=== PATIENT | male | born 1975 | race Caucasian/White ===

== ENCOUNTER 2020-09-26 11:59 | Emergency (ER) | payer OTHER ==
--- NOTE | 2020-09-26 12:39 | ED ---
Recheck HPI - General Chief Complaint: Recheck/Abnormal Lab/Rx Stated Complaint: High BP Time Seen by Provider: 09/26/20 12:00 Source: patient, RN notes reviewed Mode of arrival: ambulatory Limitations: no limitations - History of Present Illness Initial Comments: This is a 45-year-old male with no personal history of a family history of hypertension who was sent here from [facility]/Dr. Myers for evaluation of elevated blood pressure. Apparently it was noticed yesterday when he was at a dentist appointment. He has had intermittent left-sided headaches that he relates to stress as he is out of work and looking for job right now. He has 3 children he states. No fevers chills nausea vomiting sweats currently no headache states he does get the headache is rather sharp in nature. No chest pain or shortness of breath no other modifying factors. MD Complaint: other - Related Data Home Medications Medication Instructions Recorded Confirmed Clindamycin HCl 300 mg PO Q8H 09/26/20 09/26/20 Ibuprofen [Advil] 400 mg PO Q8HR PRN 09/26/20 09/26/20 Lisinopril [Prinivil] 10 mg PO DAILY 09/26/20 09/26/20 Allergies Allergy/AdvReac Type Severity Reaction Status Date / Time Penicillins Allergy Rash/Hives Verified 09/26/20 13:37 Review of Systems ROS Statement: Those systems with pertinent positive or pertinent negative responses have been documented in the HPI. ROS Other: All systems not noted in ROS Statement are negative. Past Medical History Past Medical History: Hypertension History of Any Multi-Drug Resistant Organisms: None Reported Additional Past Surgical History / Comment(s): carpal tunnel Past Psychological History: No Psychological Hx Reported Smoking Status: Never smoker Past Alcohol Use History: Occasional Past Drug Use History: Marijuana General Exam - General Exam Comments Initial Comments: This is a well-developed well-nourished male who is awake alert oriented 3 Limitations: no limitations General appearance: alert, in no apparent distress Head exam: Present: atraumatic, normocephalic, normal inspection Eye exam: Present: normal appearance, PERRL, EOMI. Absent: scleral icterus, conjunctival injection, periorbital swelling ENT exam: Present: normal exam, mucous membranes moist Neck exam: Present: normal inspection, full ROM, other (No stridor JVD or bruits). Absent: tenderness, meningismus, lymphadenopathy Respiratory exam: Present: normal lung sounds bilaterally. Absent: respiratory distress, wheezes, rales, rhonchi, stridor Cardiovascular Exam: Present: normal rhythm, tachycardia, normal heart sounds. Absent: systolic murmur, diastolic murmur, rubs, gallop, clicks GI/Abdominal exam: Present: soft, normal bowel sounds. Absent: distended, tenderness, guarding, rebound, rigid Extremities exam: Present: normal inspection, full ROM, normal capillary refill. Absent: tenderness, pedal edema, joint swelling, calf tenderness Back exam: Present: normal inspection Neurological exam: Present: alert, oriented X3, CN II-XII intact Psychiatric exam: Present: normal affect, normal mood Skin exam: Present: warm, dry, intact, normal color. Absent: rash Course Vital Signs 09/26/20 09/26/20 12:01 13:22 Temperature 98.7 F Pulse Rate 121 H 100 Respiratory 20 18 Rate Blood Pressure 171/127 152/85 O2 Sat by Pulse 99 100 Oximetry - Reevaluation(s) Reevaluation #1: 09/26/20 12:39 The patient's original blood pressure upon arrival was 171/127 3 my exam was 155/90 Medical Decision Making - Medical Decision Making Patient is asymptomatic this time I did a long discussion with him regarding the findings. Patient will be discharged and follow-up as planned he is to start taking the lisinopril prescription was called in to him by Dr. Myers's office. His blood pressure has improved markedly without intervention at this time. - Lab Data Result diagrams: 09/26/20 12:38 09/26/20 12:38 Lab Results 09/26/20 09/26/20 09/26/20 Range/Units 12:38 12:38 12:38 WBC 8.7 (3.8-10.6) k/uL RBC 5.74 (4.30-5.90) m/uL Hgb 17.0 (13.0-17.5) gm/dL Hct 48.8 (39.0-53.0) % MCV 84.9 (80.0-100.0) fL MCH 29.6 (25.0-35.0) pg MCHC 34.9 (31.0-37.0) g/dL RDW 12.9 (11.5-15.5) % Plt Count 220 (150-450) k/uL MPV 7.1 Neutrophils % 60 % Lymphocytes % 26 % Monocytes % 7 % Eosinophils % 3 % Basophils % 2 % Neutrophils # 5.2 (1.3-7.7) k/uL Lymphocytes # 2.3 (1.0-4.8) k/uL Monocytes # 0.6 (0-1.0) k/uL Eosinophils # 0.2 (0-0.7) k/uL Basophils # 0.1 (0-0.2) k/uL D-Dimer 0.39 (<0.60) mg/L FEU Sodium 139 (137-145) mmol/L Potassium 4.5 (3.5-5.1) mmol/L Chloride 104 (98-107) mmol/L Carbon Dioxide 27 (22-30) mmol/L Anion Gap 8 mmol/L BUN 17 (9-20) mg/dL Creatinine 0.81 (0.66-1.25) mg/dL Est GFR (CKD-EPI)AfAm >90 (>60 ml/min/1.73 sqM) Est GFR (CKD-EPI)NonAf >90 (>60 ml/min/1.73 sqM) Glucose 87 (74-99) mg/dL Calcium 10.1 (8.4-10.2) mg/dL Magnesium 1.8 (1.6-2.3) mg/dL Total Bilirubin 0.5 (0.2-1.3) mg/dL AST 39 (17-59) U/L ALT 63 H (4-49) U/L Alkaline Phosphatase 57 (38-126) U/L Creatine Kinase 100 (55-170) U/L Troponin I (0.000-0.034) ng/mL Total Protein 7.7 (6.3-8.2) g/dL Albumin 4.4 (3.5-5.0) g/dL TSH 3.290 (0.465-4.680) mIU/L 09/26/20 Range/Units 12:38 WBC (3.8-10.6) k/uL RBC (4.30-5.90) m/uL Hgb (13.0-17.5) gm/dL Hct (39.0-53.0) % MCV (80.0-100.0) fL MCH (25.0-35.0) pg MCHC (31.0-37.0) g/dL RDW (11.5-15.5) % Plt Count (150-450) k/uL MPV Neutrophils % % Lymphocytes % % Monocytes % % Eosinophils % % Basophils % % Neutrophils # (1.3-7.7) k/uL Lymphocytes # (1.0-4.8) k/uL Monocytes # (0-1.0) k/uL Eosinophils # (0-0.7) k/uL Basophils # (0-0.2) k/uL D-Dimer (<0.60) mg/L FEU Sodium (137-145) mmol/L Potassium (3.5-5.1) mmol/L Chloride (98-107) mmol/L Carbon Dioxide (22-30) mmol/L Anion Gap mmol/L BUN (9-20) mg/dL Creatinine (0.66-1.25) mg/dL Est GFR (CKD-EPI)AfAm (>60 ml/min/1.73 sqM) Est GFR (CKD-EPI)NonAf (>60 ml/min/1.73 sqM) Glucose (74-99) mg/dL Calcium (8.4-10.2) mg/dL Magnesium (1.6-2.3) mg/dL Total Bilirubin (0.2-1.3) mg/dL AST (17-59) U/L ALT (4-49) U/L Alkaline Phosphatase (38-126) U/L Creatine Kinase (55-170) U/L Troponin I <0.012 (0.000-0.034) ng/mL Total Protein (6.3-8.2) g/dL Albumin (3.5-5.0) g/dL TSH (0.465-4.680) mIU/L - EKG Data -: EKG Interpreted by Me EKG shows normal: sinus rhythm Rate: tachycardia EKG Comments: Sinus tachycardia 112. Interval 162 QRS 90 QT since QTC 322/439 left exodeviation poor R-wave progression - Radiology Data Radiology results: report reviewed (I did review the imaging and report no acute findings.), image reviewed Disposition Clinical Impression: Hypertension Disposition: HOME SELF-CARE Condition: Good Instructions (If sedation given, give patient instructions): Hypertension (ED) Additional Instructions: Get your lisinopril prescription that was called in for you. And follow-up with Dr. Myers's office Is patient prescribed a controlled substance at d/c from ED?: No Referrals: None,Stated [Primary Care Provider] - 1-2 days
[2020-09-26 12:56] LABS: Basophils # (A) 0.1 k/uL (0-0.2); Basophils % (A) 2 %; Eosinophils # (A) 0.2 k/uL (0-0.7); Eosinophils % (A) 3 %; HCT 48.8 % (39.0-53.0); Lymphocytes # (A) 2.3 k/uL (1.0-4.8); Lymphocytes % (A) 26 %; MCH 29.6 pg (25.0-35.0); MCHC 34.9 g/dL (31.0-37.0); MCV 84.9 fL (80.0-100.0); Mean Platelet Volume 7.1; Monocytes # (A) 0.6 k/uL (0-1.0); Monocytes % (A) 7 %; Neutrophils # (A) 5.2 k/uL (1.3-7.7); Neutrophils % (A) 60 %; Platelet Count 220 k/uL (150-450); RBC 5.74 m/uL (4.30-5.90); RDW 12.9 % (11.5-15.5); WBC 8.7 k/uL (3.8-10.6)
--- NOTE | 2020-09-26 13:04 | XR ---
EXAMINATION TYPE: XR chest 2V DATE OF EXAM: 09/26/2020 COMPARISON: NONE HISTORY: Hypertension. TECHNIQUE: Frontal and lateral views of the chest are obtained. FINDINGS: Slightly elevated right hemidiaphragm. There is no suspicious focal air space opacity, ple ural effusion, or pneumothorax seen. The cardiac silhouette size is within normal limits. Overlying EKG leads. The osseous structures are intact. IMPRESSION: No acute cardiopulmonary process.
[2020-09-26 13:13] LABS: ALT 63 U/L (4-49); AST 39 U/L (17-59); African American GFR (CKD) >90 (>60 ml/min/1.73 sqM); Albumin 4.4 g/dL (3.5-5.0); Alkaline Phosphatase 57 U/L (38-126); Anion Gap 8 mmol/L; Blood Urea Nitrogen 17 mg/dL (9-20); Calcium 10.1 mg/dL (8.4-10.2); Carbon Dioxide 27 mmol/L (22-30); Chloride 104 mmol/L (98-107); Creatine Kinase 100 U/L (55-170); Glucose 87 mg/dL (74-99); Magnesium 1.8 mg/dL (1.6-2.3); Non-African American GFR(CKD) >90 (>60 ml/min/1.73 sqM); Potassium 4.5 mmol/L (3.5-5.1); Sodium 139 mmol/L (137-145); Total Bilirubin 0.5 mg/dL (0.2-1.3); Total Protein 7.7 g/dL (6.3-8.2)
[2020-09-26 13:24] VITALS: RESP 18
--- NOTE | 2020-09-26 13:59 | CT ---
EXAMINATION TYPE: CT brain wo con DATE OF EXAM: 09/26/2020 COMPARISON: None INDICATION: HASKINS, elevated BP DLP: 1099.4 mGycm, Automated exposure control for dose reduction was used. CONTRAST: None CT of the brain is performed utilizing 3 mm thick sections through the posterior fossa and 3 mm thick sections through the remaining calvarium. Study is performed within 24 hours of arrival to the hosp [facility]. No abnormal hyperdensity is present to suggest an acute intracranial hemorrhage. No mass lesion is evident. There is benign-appearing calcification along the falx. No acute infarcts are evident. Ventricles and sulci are appropriate for the patient age. Paranasal sinuses and mastoid air cells within the scvja-ca-daje are clear. IMPRESSIONS: 1. Normal CT Brain
[2020-09-26 14:53] VITALS: BP 155/89; PULSE 98; TEMP 98.5
== END 2020-09-26 14:53 | disposition home or self-care (01) ==
LOC: EC 11:59
DX: I10 Essential (primary) hypertension (principal); Z88.0 Allergy status to penicillin; Z79.899 Other long term (current) drug therapy
CPT/HCPCS: 36415; 70450; 71046; 80053; 82550; 83735; 84443; 84484; 85025; 85379; 93005; 99284

== ENCOUNTER 2022-05-03 12:10 | Inpatient (IN) | payer BC, OTHER ==
[2022-05-03] MEDS ORDERED: VANCOMYCIN 2,500 MG in SODIUM CHLORIDE 0.9% 500 ML 500 ML IVPB ONE (14:05)
[2022-05-03] MEDS ORDERED: KETOROLAC 15 MG/ML 1 ML VIAL IVP STA (14:05)
[2022-05-03] MEDS ORDERED: VANCOMYCIN 2,250 MG in SODIUM CHLORIDE 0.9% 500 ML 500 ML IVPB ONE (14:12)
--- NOTE | 2022-05-03 14:47 | ED ---
Skin/Abscess/FB HPI - General Chief complaint: Wound/Laceration Stated complaint: Leg is swollen Time Seen by Provider: 05/03/22 13:28 Source: patient, family, RN notes reviewed Mode of arrival: ambulatory Limitations: no limitations - History of Present Illness Initial comments: This is a 47-year-old male who presents to the emergency department for left lower extremity pain and swelling. Patient states that 3 days ago he was [place]ing in a river and ended up puncturing his left leg on a cinder block. He subsequently required sutures. The pain and swelling continued to progress and 2 days ago, he was started on a course of Keflex. Yesterday, he was then given an antibiotic injection in his physician's office. He saw the nurse practitioner there today for a recheck, and he was advised to go to the emergency department for IV antibiotics, as the pain and redness have continued to progress despite starting the antibiotic. States that he feels "off" and had a mild episode of nausea yesterday. Walking is very difficult due to the pain as well. Denies any fevers, chills, sore throat, cough, dyspnea, chest pain, palpitations, abdominal pain, nausea, vomiting, diarrhea, back pain, or headaches. MD complaint: rash Onset/Timin -: days(s) Tetanus Up to Date: yes Location: [facility] Treatments Prior to Arrival: antibiotic - Related Data Home Medications Medication Instructions Recorded Confirmed Acetaminophen Tab [Tylenol Tab] 1,000 mg PO Q6HR PRN 05/03/22 05/03/22 Losartan Potassium 50 mg PO HS 05/03/22 05/03/22 Allergies Allergy/AdvReac Type Severity Reaction Status Date / Time Penicillins Allergy Rash/Hives Verified 05/03/22 16:44 Review of Systems ROS Statement: Those systems with pertinent positive or pertinent negative responses have been documented in the HPI. ROS Other: All systems not noted in ROS Statement are negative. Past Medical History Past Medical History: Hypertension History of Any Multi-Drug Resistant Organisms: None Reported Additional Past Surgical History / Comment(s): carpal tunnel Past Psychological History: No Psychological Hx Reported Smoking Status: Never smoker Past Alcohol Use History: Occasional Past Drug Use History: Marijuana General Exam Limitations: no limitations General appearance: alert, in no apparent distress Head exam: Present: atraumatic, normocephalic, normal inspection Respiratory exam: Present: normal lung sounds bilaterally. Absent: respiratory distress, wheezes, rales, rhonchi, stridor Cardiovascular Exam: Present: regular rate, normal rhythm, normal heart sounds. Absent: systolic murmur, diastolic murmur, rubs, gallop, clicks Extremities exam: Present: other (Swelling, erythema, increased heat, and tenderness of the left lower extremity is spreading from the ankle and terminating just inferior to the patella. There is a laceration with serous drainage just superior to the ankle.) Neurological exam: Present: alert, oriented X3, CN II-XII intact Psychiatric exam: Present: normal affect, normal mood Course Vital Signs 05/03/22 05/03/22 12:20 15:11 Temperature 98.1 F Pulse Rate 119 H 67 Respiratory 20 18 Rate Blood Pressure 143/84 142/78 O2 Sat by Pulse 97 99 Oximetry Medical Decision Making - Medical Decision Making This is a 47-year-old male who presents to the emergency department for left lower extremity cellulitis. Lab work reveals leukocytosis. X-ray reveals generalized soft tissue swelling. Dr. Limon evaluated the patient alongside me, we both agreed that the patient should be admitted for IV antibiotics. He has failed outpatient management, and the infection has progressed to the point where stronger treatment is likely indicated. Additionally, we discussed that infections related to water injuries can involve organisms that are fairly difficult to treat, limiting the oral antibiotic options. Patient is in agreement to admission for IV antibiotics. Patient was started on IV vancomycin, Zosyn, and Flagyl, per the admitting team's request. ID will be consulted as well. This case was discussed in detail with the attending ED physician. Presentation, findings, and treatment plan discussed in detail as well. - Lab Data Result diagrams: 05/03/22 14:15 05/03/22 14:15 Lab Results 05/03/22 05/03/22 Range/Units 14:15 14:15 WBC 15.9 H (3.8-10.6) k/uL RBC 5.36 (4.30-5.90) m/uL Hgb 15.0 (13.0-17.5) gm/dL Hct 46.3 (39.0-53.0) % MCV 86.3 (80.0-100.0) fL MCH 28.0 (25.0-35.0) pg MCHC 32.5 (31.0-37.0) g/dL RDW 13.3 (11.5-15.5) % Plt Count 209 (150-450) k/uL MPV 7.4 Neutrophils % 78 % Lymphocytes % 14 % Monocytes % 6 % Eosinophils % 1 % Basophils % 1 % Neutrophils # 12.4 H (1.3-7.7) k/uL Lymphocytes # 2.1 (1.0-4.8) k/uL Monocytes # 0.9 (0-1.0) k/uL Eosinophils # 0.1 (0-0.7) k/uL Basophils # 0.1 (0-0.2) k/uL Sodium 138 (137-145) mmol/L Potassium 4.1 (3.5-5.1) mmol/L Chloride 104 (98-107) mmol/L Carbon Dioxide 21 L (22-30) mmol/L Anion Gap 13 mmol/L BUN 14 (9-20) mg/dL Creatinine 1.04 (0.66-1.25) mg/dL Est GFR (CKD-EPI)AfAm >90 (>60 ml/min/1.73 sqM) Est GFR (CKD-EPI)NonAf 86 (>60 ml/min/1.73 sqM) Glucose 84 (74-99) mg/dL Calcium 9.3 (8.4-10.2) mg/dL Total Bilirubin 0.6 (0.2-1.3) mg/dL AST 23 (17-59) U/L ALT 27 (4-49) U/L Alkaline Phosphatase 53 (38-126) U/L Total Protein 7.0 (6.3-8.2) g/dL Albumin 4.1 (3.5-5.0) g/dL - Radiology Data Radiology results: report reviewed, image reviewed Disposition Clinical Impression: Cellulitis of left leg Disposition: ADMITTED IP TO THIS HOSP Referrals: Sachin Myers MD [Primary Care Provider] - 1-2 days
--- NOTE | 2022-05-03 14:50 | XR ---
EXAMINATION TYPE: XR tibia fibula 2 views LT DATE OF EXAM: 05/03/2022 Comparison: None Clinical History: 47-year-old male anterior lower tibia wound, infection, pain Findings: There is pretibial soft tissue swelling and mild generalized subcutaneous edema. No retained radiopaq ue foreign body seen. There is mild tricompartmental degenerative spurring at the knee. Ankle articul ation grossly intact. [id number] sized plantar and posterior calcaneal heel spurs. No periosti tis or osteolysis. Impression: Generalized soft tissue swelling of the leg and a greater degree of mid to distal pretibial soft tiss ue swelling. No retained radiopaque foreign body or acute osseous abnormality seen.
[2022-05-03 14:59] LABS: Basophils # (A) 0.1 k/uL (0-0.2); Basophils % (A) 1 %; Eosinophils # (A) 0.1 k/uL (0-0.7); Eosinophils % (A) 1 %; HCT 46.3 % (39.0-53.0); Lymphocytes # (A) 2.1 k/uL (1.0-4.8); Lymphocytes % (A) 14 %; MCHC 32.5 g/dL (31.0-37.0); MCV 86.3 fL (80.0-100.0); Mean Platelet Volume 7.4; Monocytes # (A) 0.9 k/uL (0-1.0); Monocytes % (A) 6 %; Neutrophils # (A) 12.4 k/uL (1.3-7.7); Neutrophils % (A) 78 %; Platelet Count 209 k/uL (150-450); RBC 5.36 m/uL (4.30-5.90); RDW 13.3 % (11.5-15.5); WBC 15.9 k/uL (3.8-10.6)
[2022-05-03 15:10] LABS: ALT 27 U/L (4-49); AST 23 U/L (17-59); African American GFR (CKD) >90 (>60 ml/min/1.73 sqM); Albumin 4.1 g/dL (3.5-5.0); Alkaline Phosphatase 53 U/L (38-126); Anion Gap 13 mmol/L; Blood Urea Nitrogen 14 mg/dL (9-20); Calcium 9.3 mg/dL (8.4-10.2); Carbon Dioxide 21 mmol/L (22-30); Chloride 104 mmol/L (98-107); Glucose 84 mg/dL (74-99); Non-African American GFR(CKD) 86 (>60 ml/min/1.73 sqM); Potassium 4.1 mmol/L (3.5-5.1); Sodium 138 mmol/L (137-145); Total Bilirubin 0.6 mg/dL (0.2-1.3)
[2022-05-03] MEDS ORDERED: VANCOMYCIN IV PER PHARMACY 1 EACH MISC MISCELLANE PRN (16:10)
[2022-05-03] MEDS ORDERED: PIPERACILLIN-TAZOBACTAM 3.375 GM in SODIUM CHLORIDE 0.9% 100 ML IVPB SCH (16:30)
[2022-05-03] MEDS ORDERED: DOCUSATE 100 MG CAP PO PRN (16:55)
[2022-05-03] MEDS ORDERED: NALOXONE 0.4 MG/ML 1 ML VIAL IV PRN (16:55)
[2022-05-03] MEDS ORDERED: ACETAMINOPHEN TAB 325 MG TAB PO PRN (16:55)
[2022-05-03] MEDS ORDERED: ONDANSETRON 4 MG/2 ML VIAL IVP PRN (16:55)
--- NOTE | 2022-05-03 17:01 | P.HPIM ---
History of Present Illness H&P Date: 05/03/22 Patient is a 47-year-old male with PMH of hypertension that presents the ED for worsening redness and swelling of his left lower extremity. He reports going canoeing on Thursday. He ended up puncturing his left lower extremity on a cinder block. He started developing redness and swelling in his left lower extremity since then. He went to an urgent care center who sutured his wound and started him on oral antibiotics. His symptoms were getting worse which prompted him to come to the ED. He denies any headache, lower shunt edema, nausea vomiting, fever or chills, cough, chest pain, shortness of breath, palpitations, changes in urination or bowel habits. No changes in appetite or weight. He denies any dizziness, numbness/weakness/tingling of the charities. In the ED, he was noted to be tachycardic with a heart rate of 119. Vital signs were otherwise stable. CBC showed leukocytosis of 15.9 with neutrophilia. CMP showed bicarb of 21. Tib-fib x-ray showed soft tissue swelling. Patient is admitted for sepsis related to cellulitis with infectious disease on consult. Review of systems is performed and is negative except above. General: [non toxic], [no distress], [appears at stated age] Derm: [warm], [erythema and swelling over the left lower extremity extending midcalf] Head: [atraumatic], [normocephalic], [symmetric] Eyes: [EOMI], [no lid lag], [anicteric sclera] Mouth: [no lip lesion], [mucus membranes moist] Cardiovascular: [S1S2 reg], [no murmur], [positive DP pulse bilateral] Lungs: [CTA bilateral], [no rhonchi, no rales] , [no accessory muscle use] Abdominal: [soft], [ nontender to palpation], [no guarding], [no appreciable organomegaly] Ext: [no gross muscle atrophy], [wound over the mid delacruz with sutures in place draining serosanguineous fluid], [no contractures] Neuro: [ CN II-XI grossly intact], [no focal neuro deficits] Psych: [Alert], [oriented], [appropriate affect] #Sepsis related to cellulitis #Hypertension #Morbid obesity Patient presents with worsening cellulitis failed outpatient treatment. He does meet sepsis criteria given his tachycardia, leukocytosis and positive source of infection. He will be started on Flagyl, Zosyn and vancomycin. ESR and CRP is ordered. Wound culture and blood culture is ordered. Patient will be placed on telemetry monitoring. Infectious disease has been consulted for further management. Restart losartan. Monitor vitals, adjust medication if necessary. Patient would benefit from a structured weight loss program. DVT prophylaxis: [Heparin] Discussed with: [Patient and ] Anticipated discharge: [2-3 days] Anticipated discharge place: [Home] A total of [35] minutes was spent on the care of this complex patient more than 50% of the time was spent in counseling and care coordination. Patient names his decision maker if he can't make decisions for himself. Patient would like to be full code. Past Medical History Past Medical History: Hypertension History of Any Multi-Drug Resistant Organisms: None Reported Additional Past Surgical History / Comment(s): carpal tunnel Past Psychological History: No Psychological Hx Reported Smoking Status: Never smoker Past Alcohol Use History: Occasional Past Drug Use History: Marijuana Medications and Allergies Home Medications Medication Instructions Recorded Confirmed Type Acetaminophen Tab [Tylenol Tab] 1,000 mg PO Q6HR PRN 05/03/22 05/03/22 History Losartan Potassium 50 mg PO HS 05/03/22 05/03/22 History Allergies Allergy/AdvReac Type Severity Reaction Status Date / Time Penicillins Allergy Rash/Hives Verified 05/03/22 16:44 Physical Exam Vitals: Vital Signs Temp Pulse Resp BP Pulse Ox 05/03/22 15:11 67 18 142/78 99 05/03/22 12:20 98.1 F 119 H 20 143/84 97 Intake and Output 05/03/22 05/03/22 05/03/22 06:59 14:59 22:59 Other: Weight 163.293 kg Results CBC & Chem 7: 05/03/22 14:15 05/03/22 14:15 Labs: Abnormal Lab Results - Last 24 Hours (Table) 05/03/22 05/03/22 Range/Units 14:15 14:15 WBC 15.9 H (3.8-10.6) k/uL Neutrophils # 12.4 H (1.3-7.7) k/uL Carbon Dioxide 21 L (22-30) mmol/L
[2022-05-03] MEDS: metroNIDAZOLE 500 MG TAB PO SCH ×2 (18:18→22:09)
[2022-05-03] MEDS: LEVOFLOXACIN 750MG-D5W PMX 750 MG in DEXTROSE/WATER 1 150ML.BAG IVPB SCH (18:19)
[2022-05-03] MEDS: MORPHINE SULFATE 2 MG/ML SYRINGE IVP PRN ×2 (18:24→23:20)
[2022-05-03] MEDS: HEPARIN SODIUM,PORCINE/PF 5,000 UNIT/0.5 ML SYRINGE SQ SCH (20:01)
[2022-05-03] MEDS: LOSARTAN 50 MG TAB PO SCH (20:01)
[2022-05-04] MEDS ORDERED: VANCOMYCIN 2,250 MG in SODIUM CHLORIDE 0.9% 500 ML 500 ML IVPB SCH (03:00)
[2022-05-04] MEDS: metroNIDAZOLE 500 MG TAB PO SCH ×3 (08:12→23:28)
[2022-05-04] MEDS: HEPARIN SODIUM,PORCINE/PF 5,000 UNIT/0.5 ML SYRINGE SQ SCH ×2 (08:12→20:05)
[2022-05-04] MEDS: HYDROcodone/APAP 5-325MG 1 EACH TAB PO PRN ×3 (08:12→20:05)
--- NOTE | 2022-05-04 10:41 | P.PN ---
Progress Note - Text Progress Note Date: 05/04/22 Patient was seen and examined. No acute events overnight. Patient continues to report redness and swelling of his left lower extremity. He has weeping serosanguineous discharge from his wound. General: [non toxic], [no distress], [appears at stated age] Derm: [warm], [erythema and swelling over the left lower extremity extending midcalf] Head: [atraumatic], [normocephalic], [symmetric] Eyes: [EOMI], [no lid lag], [anicteric sclera] Mouth: [no lip lesion], [mucus membranes moist] Cardiovascular: [S1S2 reg], [no murmur] Lungs: [CTA bilateral], [no rhonchi, no rales] , [no accessory muscle use] Ext: [no gross muscle atrophy], [wound over the mid delacruz with sutures in place draining serosanguineous fluid], [no contractures] Neuro: [no focal neuro deficits] Psych: [Alert], [oriented], [appropriate affect] #Sepsis related to cellulitis #Hypertension #Morbid obesity Patient presents with worsening cellulitis failed outpatient treatment. He does meet sepsis criteria given his tachycardia, leukocytosis and positive source of infection. He will be continued on Flagyl, Levaquin and vancomycin. ESR and CRP is ordered. Wound culture and blood culture is ordered. Patient will be placed on telemetry monitoring. Infectious disease has been consulted for further management. Restart losartan. Monitor vitals, adjust medication if necessary. Patient would benefit from a structured weight loss program. DVT prophylaxis: [Heparin] Discussed with: [Patient and ] Anticipated discharge: [2-3 days]
[2022-05-04 11:57] LABS: Basophils # (A) 0.08 X 10*3/uL (0.00-0.10); Basophils % (A) 0.6 %; Eosinophils # (A) 0.15 X 10*3/uL (0.04-0.35); Eosinophils % (A) 1.1 %; HCT 43.4 % (39.6-50.0); HGB 14.2 g/dL (13.0-17.0); Immature Grans, Automated 0.3 %; Lymphocytes # (A) 2.17 X 10*3/uL (0.90-5.00); Lymphocytes % (A) 16.4 %; MCH 28.4 pg (27.0-32.0); MCHC 32.7 g/dL (32.0-37.0); MCV 86.8 fL (80.0-97.0); Mean Platelet Volume 10.3 fL (9.5-12.2); Monocytes # (A) 0.96 X 10*3/uL (0.20-1.00); Monocytes % (A) 7.2 %; NRBC Per 100 WBC 0 /100 WBCS (0.0-0.0); Neutrophils # (A) 9.86 X 10*3/uL (1.80-7.70); Neutrophils % (A) 74.4 %; Platelet Count 239 X 10*3/uL (140-440); WBC 13.26 X 10*3/uL (4.50-10.00)
[2022-05-04] MEDS: VANCOMYCIN 2,250 MG in SODIUM CHLORIDE 0.9% 500 ML 500 ML IVPB SCH ×2 (11:57→23:37)
[2022-05-04 12:18] LABS: Erythrocyte Sedimentation Rate 58 mm/Hr (0-15)
[2022-05-04 12:43] LABS: African American GFR (CKD) 109.9 (60.0-200.0); Anion Gap 12.6 mmol/L (10.00-18.00); BUN/Creat Ratio 13.99 Ratio (12.00-20.00); Blood Urea Nitrogen 13.3 mg/dL (9.0-27.0); C Reactive Protein 11.8 mg/dL (0.00-0.80); Calcium 8.7 mg/dL (8.7-10.3); Carbon Dioxide 21.2 mmol/L (20.0-27.5); Non-African American GFR(CKD) 94.8 (60.0-200.0); Potassium 4.5 mmol/L (3.5-5.5)
[2022-05-04] MEDS: LEVOFLOXACIN 750MG-D5W PMX 750 MG in DEXTROSE/WATER 1 150ML.BAG IVPB SCH (17:39)
[2022-05-04] MEDS: LOSARTAN 50 MG TAB PO SCH (20:05)
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
[2022-05-04] MEDS: CEFEPIME 2 GM in SODIUM CHLORIDE 0.9% 100 ML IVPB SCH (23:33)
[2022-05-05] MEDS: HYDROcodone/APAP 5-325MG 1 EACH TAB PO PRN ×3 (02:28→18:25)
[2022-05-05] MEDS: CEFEPIME 2 GM in SODIUM CHLORIDE 0.9% 100 ML IVPB SCH ×3 (08:06→22:25)
[2022-05-05] MEDS: HEPARIN SODIUM,PORCINE/PF 5,000 UNIT/0.5 ML SYRINGE SQ SCH ×2 (08:06→19:52)
[2022-05-05] MEDS ORDERED: VANCOMYCIN TROUGH DUE 1 EACH MISC MISCELLANE ONE (11:00)
[2022-05-05] MEDS: VANCOMYCIN 2,250 MG in SODIUM CHLORIDE 0.9% 500 ML 500 ML IVPB SCH (12:09)
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
[2022-05-05] MEDS: LOSARTAN 50 MG TAB PO SCH (19:52)
[2022-05-06] MEDS: VANCOMYCIN 2,250 MG in SODIUM CHLORIDE 0.9% 500 ML 500 ML IVPB SCH (00:16)
[2022-05-06] MEDS: HYDROcodone/APAP 5-325MG 1 EACH TAB PO PRN ×3 (02:32→19:37)
--- NOTE | 2022-05-06 07:34 | P.PN ---
Subjective Progress Note Date: 05/05/22 Principal diagnosis: Left leg cellulitis Patient is a 47-year-old male with recent trauma to the left lower extremity doing canoeing trip and exposure to the freshwater, subsequently presented to the hospital with extensive cellulitis of the left leg. Failing Outpatient oral antibiotics. On today's evaluation that is 05/05/2022, the patient denies having any fever or wheezes, the patient is breathing comfortably, denies having any chest pain or shortness of cough left leg swelling redness slightly decreased Objective - Vital Signs Vital signs: Vital Signs Temp 98.6 F 05/05/22 07:20 Pulse 89 05/05/22 07:20 Resp 18 05/05/22 07:20 BP 178/94 05/05/22 07:20 Pulse Ox 97 05/05/22 07:20 FiO2 Intake & Output 05/04/22 05/05/22 05/05/22 18:59 06:59 18:59 Intake Total 1218 240 Balance 1218 240 Intake: Intake, IV Titration 500 Amount Vancomycin 2,250 mg In 500 Sodium Chloride 0.9% 500 ml 500 ml @ 167 mls/hr [facility]PB [facility]12[facility] Rx#: [id number] Oral 718 240 Other: # Voids 3 1 - Exam GENERAL DESCRIPTION: Middle-age male lying in bed in no distress RESPIRATORY SYSTEM: Unlabored breathing , decreased breath sounds at bases HEART: S1 S2 regular rate and rhythm , ABDOMEN: Soft , no tenderness EXTREMITIES: Extensive swelling redness of left lower extremity minimal drainage - Labs CBC & Chem 7: 05/04/22 06:50 05/04/22 06:50 Labs: Abnormal Lab Results - Last 24 Hours (Table) 05/04/22 05/04/22 Range/Units 06:50 06:50 WBC 13.26 H (4.50-10.00) X 10*3/uL Neutrophils # 9.86 H (1.80-7.70) X 10*3/uL ESR 58 H (0-15) mm/Hr C-Reactive Protein 11.80 H (0.00-0.80) mg/dL Microbiology - Last 24 Hours (Table) 05/03/22 15:11 Gram Stain - Preliminary Leg - Left Wound Culture - Preliminary Gram Neg Bacilli 05/03/22 14:30 Blood Culture - Preliminary Blood No Growth after 24 hours 05/03/22 14:15 Blood Culture - Preliminary Blood No Growth after 24 hours Assessment and Plan (1) Cellulitis of left leg Current Visit: Yes Status: Acute Code(s): L03.116 - CELLULITIS OF LEFT LOWER LIMB SNOMED Code(s): 944520162 Plan: 1patient with extensive left lower extremity cellulitis with a recent trauma and exposure to the floor for did not respond to the outpatient oral Keflex will need to cover for resistant gram-positive as well as gram-negative's. 2patient with a penicillin allergy however has tolerated Keflex without any problem. 3patient to continue with vancomycin pharmacy along with cefepime 2 g every 8 hours while waiting for the cultures to finalize. Time with Patient: Less than 30
[2022-05-06] MEDS: CEFEPIME 2 GM in SODIUM CHLORIDE 0.9% 100 ML IVPB SCH ×3 (08:05→21:50)
[2022-05-06] MEDS: HEPARIN SODIUM,PORCINE/PF 5,000 UNIT/0.5 ML SYRINGE SQ SCH ×2 (08:05→21:50)
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
[2022-05-06] MEDS: LOSARTAN 50 MG TAB PO SCH (21:50)
--- NOTE | 2022-05-06 23:06 | P.PN ---
Subjective Progress Note Date: 05/06/22 Principal diagnosis: Left leg cellulitis Patient is a 47-year-old male with recent trauma to the left lower extremity doing canoeing trip and exposure to the freshwater, subsequently presented to the hospital with extensive cellulitis of the left leg. Failing Outpatient oral antibiotics. On today's evaluation that is 05/06/2022, the patient remains to be afebrile, t he patient is breathing comfortably on room air, the patient denies having any chest pain or shortness of cough left leg swelling redness slightly decreased and no drainage Objective - Vital Signs Vital signs: Vital Signs Temp 98.2 F 05/06/22 07:00 Pulse 82 05/06/22 07:00 Resp 18 05/06/22 07:00 BP 167/91 05/06/22 07:00 Pulse Ox 99 05/06/22 07:00 FiO2 Intake & Output 05/05/22 05/06/22 05/06/22 18:59 06:59 18:59 Intake Total 1198 240 Balance 1198 240 Intake: Intake, IV Titration 600 Amount Cefepime 2 gm In Sodium 100 Chloride 0.9% 100 ml @ 25 mls/hr IVPB Q8H [facility] Rx#: [id number] Vancomycin 2,250 mg In 500 Sodium Chloride 0.9% 500 ml 500 ml @ 167 mls/hr IVPB Q12H [facility] Rx#: [id number] Oral 598 240 Other: # Voids 3 2 # Bowel Movements 1 - Exam GENERAL DESCRIPTION: Middle-age male lying in bed in no distress RESPIRATORY SYSTEM: Unlabored breathing , decreased breath sounds at bases HEART: S1 S2 regular rate and rhythm , ABDOMEN: Soft , no tenderness EXTREMITIES: Extensive swelling redness of left lower extremity minimal drainage - Labs CBC & Chem 7: 05/04/22 06:50 05/04/22 06:50 Labs: Microbiology - Last 24 Hours (Table) 05/03/22 15:11 Gram Stain - Preliminary Leg - Left Wound Culture - Preliminary Aeromonas veronii complex Plesiomonas shigelloides 05/03/22 14:30 Blood Culture - Preliminary Blood No Growth after 48 hours 05/03/22 14:15 Blood Culture - Preliminary Blood No Growth after 48 hours Assessment and Plan (1) Cellulitis of left leg Current Visit: Yes Status: Acute Code(s): L03.116 - CELLULITIS OF LEFT LOWER LIMB SNOMED Code(s): 372015211 Plan: 1patient with extensive left lower extremity cellulitis with a recent trauma and exposure to the floor for did not respond to the outpatient oral Keflex will need to cover for resistant gram-positive as well as gram-negative's. 2patient with a penicillin allergy however has tolerated Keflex without any problem. 3patient has shown clinical improvement and local cultures are currently growing gram-negative's, patient to continue with cefepime 2 g every 8 hours for another 24 hour in view of extensive cellulitis before transitioning to oral antibiotics Time with Patient: Less than 30
[2022-05-06 23:19] LABS: Basophils # (A) 0.07 X 10*3/uL (0.00-0.10); Basophils % (A) 0.8 %; Eosinophils # (A) 0.27 X 10*3/uL (0.04-0.35); Eosinophils % (A) 2.9 %; HCT 46.2 % (39.6-50.0); HGB 15.2 g/dL (13.0-17.0); Immature Grans, Automated 0.5 %; Lymphocytes # (A) 1.65 X 10*3/uL (0.90-5.00); Lymphocytes % (A) 17.8 %; MCHC 32.9 g/dL (32.0-37.0); MCV 85.1 fL (80.0-97.0); Monocytes # (A) 0.66 X 10*3/uL (0.20-1.00); Monocytes % (A) 7.1 %; NRBC Per 100 WBC 0 /100 WBCS (0.0-0.0); Neutrophils # (A) 6.58 X 10*3/uL (1.80-7.70); Neutrophils % (A) 70.9 %; Platelet Count 274 X 10*3/uL (140-440); RBC 5.43 X 10*6/uL (4.40-5.60); RDW 13.5 % (11.5-14.5); WBC 9.28 X 10*3/uL (4.50-10.00)
[2022-05-07] MEDS: CEFEPIME 2 GM in SODIUM CHLORIDE 0.9% 100 ML IVPB SCH (06:00)
[2022-05-07] MEDS: HYDROcodone/APAP 5-325MG 1 EACH TAB PO PRN ×2 (06:10→10:29)
[2022-05-07] MEDS: HEPARIN SODIUM,PORCINE/PF 5,000 UNIT/0.5 ML SYRINGE SQ SCH (07:28)
[2022-05-07 08:09] VITALS: BP 154/94; PULSE 94; RESP 20; TEMP 97.7
[2022-05-07 09:20] LABS: HGB 14.7 g/dL (13.0-17.0); MCH 27.9 pg (27.0-32.0); MCHC 32.7 g/dL (32.0-37.0); MCV 85.6 fL (80.0-97.0); Mean Platelet Volume 9.5 fL (9.5-12.2); NRBC Per 100 WBC 0 /100 WBCS (0.0-0.0); Platelet Count 243 X 10*3/uL (140-440); RBC 5.26 X 10*6/uL (4.40-5.60); RDW 13.6 % (11.5-14.5)
--- NOTE | 2022-05-07 15:02 | P.DS ---
Providers Date of admission: 05/05/22 08:22 Expected date of discharge: 05/07/22 Attending physician: Rani Vazquez MD Consults: 05/03/22 16:56 Consult Physician Routine Consulting Provider: Griselda Alex Consult Reason/Comments: Cellulitis Do you want consulting provider notified?: Yes Primary care physician: Sachin Myers Hospital Course: Discharge Diagnosis: Sepsis secondary to cellulitis of left lower extremity. Blood culture showing no growth to date and wound cultures positive for Aeromonas veronii complex and Plesiomonas shigelloides. Patient underwent a 4 day hospitalization course in which he received IV antibiotics with vancomycin and cefepime. Once wound began to show improvement and final cultures were resulted with sensitivity report. Patient being discharged home with a 10 day course of oral antibiotics cephalexin, ciprofloxacin, and Flagyl. Patient to follow-up with infectious disease next week as scheduled and recommended to follow up outpatient with PCP in 1-2 days. Leukocytosis, resolved Hypertension. Monitor vital signs and continue daily medication regimen of losartan. Morbid obesity with BMI of 50.2 kg/m. Recommend outpatient structured weight loss program. Hospital Course: Patient is a very pleasant 47-year-old male with a past medical history of hypertension. He presented to the emergency department on 05/03/22 secondary to worsening redness and swelling of left lower extremity wound despite outpatient treatment with antibiotics, Keflex. Patient reports wound left lower extremity was obtained while continuing on Thursday. Patient reports continued tipped over and patient received an avulsion/puncture wound to left delacruz from what he believed to be a cinder block. Patient reports initially he did not even notice the wound but upon returning home reports that he did rinse it out. Patient states the next day he developed redness and swelling to left lower extremity and was evaluated at an urgent care center and had sutures placed to wound and was given TDAP Vaccination and started on oral antibiotic, Keflex. Patient reports he took antibiotic as prescribed but continued to have worsening redness, swelling, and drainage he came to the emergency department for further evaluation. Patient found to have leukocytosis with WBC count of 15.9 with left shift, elevated ESR 58 and elevated CRP of 11.80. Patient was admitted under our services with consultation to infectious disease secondary to failed outpatient treatment of cellulitis. Blood cultures and wound cultures obtained. Blood culture showing no growth to date and wound cultures positive for Aeromonas veronii complex Plesiomonas shigelloides. Patient underwent a 4 day hospitalization course in which he received IV antibiotics with vancomycin and cefepime. Once wound began to show improvement and final cultures were resulted with sensitivity report. Patient being discharged home with a 10 day course of oral antibiotics cephalexin, ciprofloxacin, and Flagyl. Patient to follow-up with infectious disease next week as scheduled and recommended to follow up outpatient with PCP in 1-2 days. Physical exam: Vital signs reviewed and stable. General: Nontoxic, no distress and appears stated age. Derm: Skin warm and dry, normal coloration for ethnicity. Left lower extremity with mild circumferential erythema and edema, significantly improved. Small approximately 3 cm Wound to mid lower calf drainage clear discharge. Head: Atraumatic, normocephalic and symmetric. Eyes: EOMs intact, no lid lag, and anicteric sclera Mouth: no lip lesions, mucus membranes moist Cardiovascular: regular rate and rhythm with normal S1S2, no murmur, positive posterior tibial pulses bilaterally, and cap refill < 2 seconds. Lungs: Respirations even, regular, and unlabored on room air. Lungs CTA bilaterally, no rhonchi, no rales, no wheezing, and no accessory muscle usage. Abdominal: soft, nontender to palpation, no guarding, no appreciable organomegaly Ext: ROM intact. No gross muscle atrophy, no edema, no contractures Neuro: Speech clear, face symmetrical and CN II-XII grossly intact with no noted focal neuro deficits Psych: Alert and oriented to person, place, time, and situation. Appropriate and pleasant affect. A total of 38 minutes of time were spent preparing this complex discharge summary. Pt was discharged on 05/07/22 11:49 AM I reviewed the documentation as provided by the GENA above, who is the original author of this note. I agree with the documented assessment and plan, with the following changes: none Health Concerns: Please advise Dr. Myers's office to place referral for follow-up with Dr. Alex as discussed for insurance Patient Condition at Discharge: Stable Plan - Discharge Summary Discharge Rx Participant: No New Discharge Prescriptions: New metroNIDAZOLE [Flagyl] 500 mg PO TID #30 tab Ciprofloxacin HCl [Cipro] 500 mg PO Q12HR 10 Days #20 tab Cephalexin [Keflex] 500 mg PO Q6HR 10 Days #40 cap HYDROcodone/APAP 5-325MG [[place] 5-325] 1 tab PO Q4HR PRN 3 Days #18 tab PRN Reason: Pain Continue Acetaminophen Tab [Tylenol] 1,000 mg PO Q6HR PRN PRN Reason: Pain Or Fever > 100.5 Losartan Potassium 50 mg PO HS Discharge Medication List Acetaminophen Tab [Tylenol] 1,000 mg PO Q6HR PRN 05/03/22 [History] Losartan Potassium 50 mg PO HS 05/03/22 [History] Cephalexin [Keflex] 500 mg PO Q6HR 10 Days #40 cap 05/07/22 [Rx] Ciprofloxacin HCl [Cipro] 500 mg PO Q12HR 10 Days #20 tab 05/07/22 [Rx] HYDROcodone/APAP 5-325MG [[place] 5-325] 1 tab PO Q4HR PRN 3 Days #18 tab 05/07/22 [Rx] metroNIDAZOLE [Flagyl] 500 mg PO TID #30 tab 05/07/22 [Rx] Follow up Appointment(s)/Referral(s): Sachin Myers MD [Primary Care Provider] - 1-2 days Griselda Alex MD [STAFF PHYSICIAN] - 05/19/22 2:15 pm (Patient needs to get a referral from [facility] . It can be faxed to Dr Alex's office [phone]) Patient Instructions/Handouts: Cephalexin (By mouth), Ciprofloxacin (By mouth), Hydrocodone/Acetaminophen (By mouth), Metronidazole (By mouth), Cellulitis (ED) Activity/Diet/Wound Care/Special Instructions: Activity: As tolerated. Take breaks as needed. Diet: Heart healthy and carb consistent diet. Avoid salts, or foods with hidden salts such as canned or boxed foods and frozen dinners. Extra salt makes your heart work harder and traps the fluid in your body for longer. Special Instructions: Take all of your medications as directed and remember to keep all of your doctor's appointments and follow-up as needed. Thank you for allowing us to participate in your care, it was truly a pleasure having you for our patient!!! And try not to flip any more canoes!! =) Discharge Disposition: HOME SELF-CARE
== END 2022-05-07 11:51 | disposition home or self-care (01) | DRG 872 ==
LOC: EC 12:10 → 6NMEDSUR 16:14 → OBSVTOIN 05-05 08:22
PROVIDERS: ADMIT Internal Medicine; ATTEND Internal Medicine
DX: A41.9 Sepsis, unspecified organism (principal); L03.116 Cellulitis of left lower limb; Z68.43 Body mass index [BMI] 50.0-59.9, adult; I10 Essential (primary) hypertension; B96.89 Other specified bacterial agents as the cause of diseases classified elsewhere; E66.01 Morbid (severe) obesity due to excess calories; S81.832D Puncture wound without foreign body, left lower leg, subsequent encounter; Z79.899 Other long term (current) drug therapy; Z88.0 Allergy status to penicillin
CPT/HCPCS: 36415; 80048; 80053; 80202; 85025; 85027; 85652; 86140; 87040; 87070; 87075; 87077; 87186; 87205; 96365; 96366; 96375; 99284

== ENCOUNTER 2024-05-22 18:25 | Emergency (ER) | payer BC ==
[2024-05-22] MEDS: SODIUM CHLORIDE 0.9% 1,000 ML IV STA (19:24)
[2024-05-22] MEDS: ONDANSETRON 4 MG/2 ML VIAL IVP STA (19:26)
[2024-05-22] MEDS: KETOROLAC 15 MG/ML 1 ML VIAL IVP STA (19:27)
[2024-05-22 20:00] LABS: Appearance,Urine Cloudy (Clear); Bilirubin,Urine Negative (Negative); Blood,Urine Moderate (Negative); Color,Urine Yellow; Glucose,Urine (UA) Negative (Negative); Ketones,Urine 1+ (Negative); Leukocyte Esterase,Urine Negative (Negative); Mucus,Urine Moderate /hpf; Nitrite,Urine Negative (Negative); PH, Urine 5.5 (5.0-8.0); Protein,Urine 1+ (Negative); RBC,Urine 64 /hpf (0-5); Specific Gravity,Urine 1.035 (1.001-1.035); Squamous Epithelial Cell,Urine <1 /hpf (0-4); Urobilinogen,Urine <2.0 mg/dL (<2.0); WBC,Urine 1 /hpf (0-5)
--- NOTE | 2024-05-22 20:15 | ED ---
Male Urogenital HPI - General Chief complaint: Abdominal Pain Stated complaint: Abdominal Pain Time Seen by Provider: 05/22/24 19:10 Source: patient, RN notes reviewed Mode of arrival: ambulatory Limitations: no limitations - History of Present Illness Initial comments: 49-year-old male presenting with left groin pain x 1 day. Describes the pain as a constant pain in the left lower abdomen that radiates around the left flank. States he has had this pain intermittently over the past couple of weeks, but usually resolves on its own. States today pain has been worsening. He is also complaining of dark urine and constipation. Last normal bowel movement was 2 days ago. Patient has been straining today and has had several small bowel movements today. Denies blood thinners. Denies history of abdominal surgeries. Denies kidney stones. Denies any testicular swelling/pain or penile swelling/pain. Denies penile discharge, dysuria, urinary frequency, urinary urgency, fever, chills, vomiting. - Related Data Home Medications Medication Instructions Recorded Confirmed Albuterol Sulfate [Albuterol 2 puff INHALATION RT-Q4H PRN 05/22/24 05/22/24 Sulfate Hfa] Candesartan Cilexetil 32 mg PO DAILY 05/22/24 05/22/24 Clobetasol Propionate [Temovate 1 applic TOPICAL DAILY PRN 05/22/24 05/22/24 0.05% Cream] Mv-Min/Folic/K1/Lycopen/Lutein 1 tab PO DAILY 05/22/24 05/22/24 [Centrum Silver Men Tablet] Tirzepatide [Mounjaro] 7.5 mg SQ FR 05/22/24 05/22/24 Triamcinolone 0.1% Cream [Kenalog 1 applic TOPICAL DAILY 05/22/24 05/22/24 0.1% Cream] Previous Rx's Medication Instructions Recorded Ketorolac [Toradol] 10 mg PO Q8HR #15 tab 05/22/24 Tamsulosin [Flomax] 0.4 mg PO DAILY #7 cap 05/22/24 Allergies Allergy/AdvReac Type Severity Reaction Status Date / Time Penicillins Allergy Rash/Hives Verified 05/22/24 19:42 Review of Systems ROS Statement: Those systems with pertinent positive or pertinent negative responses have been documented in the HPI. ROS Other: All systems not noted in ROS Statement are negative. Past Medical History Past Medical History: Hypertension History of Any Multi-Drug Resistant Organisms: None Reported Additional Past Surgical History / Comment(s): carpal tunnel Past Anesthesia/Blood Transfusion Reactions: No Reported Reaction Past Psychological History: No Psychological Hx Reported Smoking Status: Never smoker Past Alcohol Use History: Occasional Past Drug Use History: Marijuana General Exam Limitations: no limitations General appearance: alert, in no apparent distress Head exam: Present: atraumatic, normocephalic, normal inspection Respiratory exam: Present: normal lung sounds bilaterally. Absent: respiratory distress, wheezes, rales, rhonchi, stridor Cardiovascular Exam: Present: regular rate, normal rhythm, normal heart sounds. Absent: systolic murmur, diastolic murmur, rubs, gallop, clicks GI/Abdominal exam: Present: soft, normal bowel sounds. Absent: distended, tenderness, guarding, rebound, rigid exam: Present: normal inspection, other (No scrotal swelling or erythema). Absent: testicular tenderness, urethral discharge, scrotal swelling Extremities exam: Present: normal inspection, full ROM, normal capillary refill. Absent: tenderness, pedal edema, joint swelling, calf tenderness Back exam: Present: normal inspection. Absent: CVA tenderness (R), CVA tenderness (L) Neurological exam: Present: alert, oriented X3 Psychiatric exam: Present: normal affect, normal mood Skin exam: Present: warm, dry, intact, normal color. Absent: rash Course Vital Signs 05/22/24 05/22/24 18:27 21:12 Temperature 97.9 F 97.9 F Pulse Rate 115 H 98 Respiratory 20 19 Rate Blood Pressure 198/100 130/70 O2 Sat by Pulse 98 95 Oximetry Medical Decision Making - Medical Decision Making Was pt. sent in by a medical professional or institution (, PA, [employer], urgent care, hospital, or intermediate...) When possible be specific @ -No Did you speak to anyone other than the patient for history (EMS, parent, family, police, friend...)? What history was obtained from this source @ -No Did you review nursing and triage notes (agree or disagree)? Why? @ -I reviewed and agree with nursing and triage notes Were old charts reviewed (outside hosp., previous admission, EMS record, old EKG, old radiological studies, urgent care reports/EKG's, intermediate records)? Report findings @ -No old charts were reviewed Differential Diagnosis (chest pain, altered mental status, abdominal pain women, abdominal pain men, vaginal bleeding, weakness, fever, dyspnea, syncope, headache, dizziness, GI bleed, back pain, seizure, CVA, palpatations, mental health, musculoskeletal)? @ -Differential Abdominal Pain Men: Appendicitis, cholecystitis, diverticulosis, ischemic bowel, pancreatitis, hepatitis, UTI, gastroenteritis, AAA, incarcerated hernia, bowel obstruction, constipation, inflammatory bowel, hepatitis, peptic ulcer disease, splenic infarction, perforated viscus, testicular torsion, this is not meant to be an all-inclusive list EKG interpreted by me (3pts min.). @ -None X-rays interpreted by me (1pt min.). @ -None done CT interpreted by me (1pt min.). @ -CT reveals mild left hydronephrosis secondary to obstructing 4 mm calculus just shy of ureterovesicular junction, fat stranding around left kidney U/S interpreted by me (1pt. min.). @ -None done What testing was considered but not performed or refused? (CT, X-rays, U/S, labs)? Why? @ -None What meds were considered but not given or refused? Why? @ -Zofran and Toradol ordered however patient declined and states symptoms improved after he urinated Did you discuss the management of the patient with other professionals (professionals i.e. , PA, [employer], lab, RT, psych nurse, social problems specialist, intellectual property lawyer, teacher, credit products officer, catalytic case operator)? Give summary @ -No Was smoking cessation discussed for >3mins.? @ -No Was critical care preformed (if so, how long)? @ -No Were there social determinants of health that impacted care today? How? (Homelessness, low income, unemployed, alcoholism, drug addiction, transportation, low edu. Level, literacy, decrease access to med. care, group home, rehab)? @ -No Was there de-escalation of care discussed even if they declined (Discuss DNR or withdrawal of care, Hospice)? DNR status @ -No What co-morbidities impacted this encounter? (DM, HTN, Smoking, COPD, CAD, Cancer, CVA, ARF, Chemo, Hep., AIDS, mental health diagnosis, sleep apnea, morbid obesity)? @ -None Was patient admitted / discharged? Hospital course, mention meds given and route, prescriptions, significant lab abnormalities, going to OR and other pertinent info. @ -Patient was discharged. Patient was seen and evaluated for left flank pain x 1 day. Patient is initially hypertensive and tachycardic, afebrile. No abdominal tenderness to palpation. No scrotal swelling or redness. Patient was provided with IV fluids, patient declined Zofran and Toradol. Lab work including CBC, CMP, lactic acid remarkable for white blood cell count of 13.9. Urine remarkable for large amount of red blood cells, negative for bacteria. CT reveals mild left hydronephrosis secondary to obstructing 4 mm calculus discharge Ureterovesicular junction. Discussed findings with patient. Discussed diagnosis of left nephrolithiasis. Patient's pain is well-controlled and patient feels stable for discharge. Supportive care discussed. Prescribed Flomax and Toradol. Advised to follow-up with urology. Return precautions discussed and patient is agreeable to plan. Case was discussed with my ED atten ding Dr. Gordon. Patient discharged in stable condition. Undiagnosed new problem with uncertain prognosis? @ -No Drug Therapy requiring intensive monitoring for toxicity (Heparin, Nitro, Insulin, Cardizem)? @ -No Were any procedures done? @ -No Diagnosis/symptom? @ -Left nephrolithiasis Acute, or Chronic, or Acute on Chronic? @ -Acute Uncomplicated (without systemic symptoms) or Complicated (systemic symptoms)? @ -Uncomplicated Side effects of treatment? @ -No Exacerbation, Progression, or Severe Exacerbation? @ -No Poses a threat to life or bodily function? How? (Chest pain, [place], [place], pneumonia, PE, COPD, DKA, ARF, appy, cholecystitis, CVA, Diverticulitis, Homicidal, Suicidal, threat to staff... and all critical care pts) @ -No - Lab Data Result diagrams: 05/22/24 20:05 05/22/24 20:05 Lab Results 05/22/24 05/22/24 05/22/24 Range/Units 19:29 19:29 20:05 WBC 13.9 H (3.8-10.6) k/uL RBC 4.92 (4.30-5.90) m/uL Hgb 14.3 (13.0-17.5) gm/dL Hct 42.5 (39.0-53.0) % MCV 86.6 (80.0-100.0) fL MCH 29.1 (25.0-35.0) pg MCHC 33.6 (31.0-37.0) g/dL RDW 13.2 (11.5-15.5) % Plt Count 212 (150-450) k/uL MPV 7.7 Neutrophils % 87 % Lymphocytes % 8 % Monocytes % 4 % Eosinophils % 0 % Basophils % 0 % Neutrophils # 12.1 H (1.3-7.7) k/uL Lymphocytes # 1.1 (1.0-4.8) k/uL Monocytes # 0.6 (0-1.0) k/uL Eosinophils # 0.0 (0-0.7) k/uL Basophils # 0.0 (0-0.2) k/uL Sodium (137-145) mmol/L Potassium (3.5-5.1) mmol/L Chloride (98-107) mmol/L Carbon Dioxide (22-30) mmol/L Anion Gap mmol/L BUN (9-20) mg/dL Creatinine (0.66-1.25) mg/dL Est GFR (CKD-EPI)AfAm (>60 ml/min/1.73 sqM) Est GFR (CKD-EPI)NonAf (>60 ml/min/1.73 sqM) Glucose (74-99) mg/dL Plasma Lactic Acid Leonardo 1.1 (0.7-2.0) mmol/L Calcium (8.4-10.2) mg/dL Total Bilirubin (0.2-1.3) mg/dL AST (17-59) U/L ALT (4-49) U/L Alkaline Phosphatase (38-126) U/L Total Protein (6.3-8.2) g/dL Albumin (3.5-5.0) g/dL Urine Color Yellow Urine Appearance Cloudy (Clear) Urine pH 5.5 (5.0-8.0) Ur Specific [place] 1.035 (1.001-1.035) Urine Protein 1+ H (Negative) Urine Glucose (UA) Negative (Negative) Urine Ketones 1+ H (Negative) Urine Blood Moderate H (Negative) Urine Nitrite Negative (Negative) Urine Bilirubin Negative (Negative) Urine Urobilinogen <2.0 (<2.0) mg/dL Ur Leukocyte Esterase Negative (Negative) Urine RBC 64 H (0-5) /hpf Urine WBC 1 (0-5) /hpf Ur Squamous Epith Cells <1 (0-4) /hpf Urine Mucus Moderate H (None) /hpf 05/22/24 Range/Units 20:05 WBC (3.8-10.6) k/uL RBC (4.30-5.90) m/uL Hgb (13.0-17.5) gm/dL Hct (39.0-53.0) % MCV (80.0-100.0) fL MCH (25.0-35.0) pg MCHC (31.0-37.0) g/dL RDW (11.5-15.5) % Plt Count (150-450) k/uL MPV Neutrophils % % Lymphocytes % % Monocytes % % Eosinophils % % Basophils % % Neutrophils # (1.3-7.7) k/uL Lymphocytes # (1.0-4.8) k/uL Monocytes # (0-1.0) k/uL Eosinophils # (0-0.7) k/uL Basophils # (0-0.2) k/uL Sodium 139 (137-145) mmol/L Potassium 4.2 (3.5-5.1) mmol/L Chloride 111 H (98-107) mmol/L Carbon Dioxide 21 L (22-30) mmol/L Anion Gap 7 mmol/L BUN 18 (9-20) mg/dL Creatinine 0.83 (0.66-1.25) mg/dL Est GFR (CKD-EPI)AfAm >90 (>60 ml/min/1.73 sqM) Est GFR (CKD-EPI)NonAf >90 (>60 ml/min/1.73 sqM) Glucose 104 H (74-99) mg/dL Plasma Lactic Acid Leonardo (0.7-2.0) mmol/L Calcium 9.5 (8.4-10.2) mg/dL Total Bilirubin 0.7 (0.2-1.3) mg/dL AST 28 (17-59) U/L ALT 33 (4-49) U/L Alkaline Phosphatase 49 (38-126) U/L Total Protein 6.8 (6.3-8.2) g/dL Albumin 4.3 (3.5-5.0) g/dL Urine Color Urine Appearance (Clear) Urine pH (5.0-8.0) Ur Specific [place] (1.001-1.035) Urine Protein (Negative) Urine Glucose (UA) (Negative) Urine Ketones (Negative) Urine Blood (Negative) Urine Nitrite (Negative) Urine Bilirubin (Negative) Urine Urobilinogen (<2.0) mg/dL Ur Leukocyte Esterase (Negative) Urine RBC (0-5) /hpf Urine WBC (0-5) /hpf Ur Squamous Epith Cells (0-4) /hpf Urine Mucus (None) /hpf Disposition Clinical Impression: Left nephrolithiasis Disposition: HOME SELF-CARE Condition: Stable Instructions (If sedation given, give patient instructions): Kidney Stones (ED) Additional Instructions: Take Flomax as prescribed. Take Toradol as needed for pain. Follow-up with Dr. Browne within the week. Please return to the Emergency Department if symptoms worsen or any other concerns. Prescriptions: Tamsulosin [Flomax] 0.4 mg PO DAILY #7 cap Ketorolac [Toradol] 10 mg PO Q8HR #15 tab Is patient prescribed a controlled substance at d/c from ED?: No Referrals: Sachin Myers MD [Primary Care Provider] - 1-2 days Time of Disposition: 21:32
--- NOTE | 2024-05-22 20:30 | CT ---
EXAMINATION TYPE: CT abdomen pelvis wo con CT DLP: 2128.2 mGycm, Automated exposure control for dose reduction was used. DATE OF EXAM: 05/22/2024 8:05 PM COMPARISON: None CLINICAL INDICATION: Male, 49 years old with history of left flank pain, kidney stone suspected; Left flank pain, kidney stone suspected TECHNIQUE: Axial CT abdomen pelvis wo con;Sagittal and coronal reformats were created on a separate workstation. Contrast used: mL of , (none if empty) Oral contrast used: without Oral Contrast (none if empty) FINDINGS: LOWER CHEST: Unremarkable ABDOMEN LIVER: Unremarkable GALLBLADDER AND BILE DUCTS: Unremarkable. PANCREAS: Unremarkable. SPLEEN: Unremarkable. ADRENAL GLANDS: Right adrenal fat-containing lesion compatible with mild myelolipoma measuring 30 x 3 9 mm. KIDNEYS AND URETERS: Mild left hydronephrosis secondary obstructing 4 mm calculus just shy of the ure terovesicular junction. Fat stranding changes around the left kidney are present. No right calculi or right hydronephrosis. PELVIS BLADDER: Unremarkable REPRODUCTIVE: Unremarkable. ABDOMEN & PELVIS STOMACH AND BOWEL: No evidence of bowel obstruction. The appendix is normal. Scattered colonic divert icula. PERITONEUM/RETROPERITONEUM: No evidence of pneumoperitoneum or free fluid. VASCULATURE: No evidence of aortic aneurysm. MUSCULOSKELETAL: No acute osseous abnormalities LYMPH NODES: No gross evidence for lymphadenopathy. SOFT TISSUE/ABDOMINAL WALL: Fatty changes to the inguinal canals bilaterally. IMPRESSION: 1. Mild left hydronephrosis secondary obstructing 4 mm calculus just shy of the ureterovesicular kathie ction. Fat stranding changes around the left kidney are present. Correlate for ascending infection. 2. Colonic diverticulosis. 3. Right adrenal myelolipoma.
[2024-05-22 20:31] LABS: Basophils % (A) 0 %; Eosinophils % (A) 0 %; HCT 42.5 % (39.0-53.0); HGB 14.3 gm/dL (13.0-17.5); Lymphocytes # (A) 1.1 k/uL (1.0-4.8); Lymphocytes % (A) 8 %; MCH 29.1 pg (25.0-35.0); MCHC 33.6 g/dL (31.0-37.0); MCV 86.6 fL (80.0-100.0); Mean Platelet Volume 7.7; Monocytes # (A) 0.6 k/uL (0-1.0); Monocytes % (A) 4 %; Neutrophils # (A) 12.1 k/uL (1.3-7.7); Neutrophils % (A) 87 %; Platelet Count 212 k/uL (150-450); RBC 4.92 m/uL (4.30-5.90); RDW 13.2 % (11.5-15.5); WBC 13.9 k/uL (3.8-10.6)
[2024-05-22 20:52] LABS: ALT 33 U/L (4-49); AST 28 U/L (17-59); African American GFR (CKD) >90 (>60 ml/min/1.73 sqM); Albumin 4.3 g/dL (3.5-5.0); Alkaline Phosphatase 49 U/L (38-126); Anion Gap 7 mmol/L; Blood Urea Nitrogen 18 mg/dL (9-20); Calcium 9.5 mg/dL (8.4-10.2); Carbon Dioxide 21 mmol/L (22-30); Chloride 111 mmol/L (98-107); Glucose 104 mg/dL (74-99); Non-African American GFR(CKD) >90 (>60 ml/min/1.73 sqM); Potassium 4.2 mmol/L (3.5-5.1); Sodium 139 mmol/L (137-145); Total Bilirubin 0.7 mg/dL (0.2-1.3); Total Protein 6.8 g/dL (6.3-8.2)
[2024-05-22 21:44] VITALS: BP 137/83; PULSE 89; RESP 18; TEMP 97.8
== END 2024-05-22 21:50 | disposition home or self-care (01) ==
LOC: EC 18:25
DX: N13.2 Hydronephrosis with renal and ureteral calculous obstruction (principal)
CPT/HCPCS: 36415; 74176; 80053; 81001; 83605; 85025; 96361; 96374; 96375; 99284